=== PATIENT | female | born 1945 | race Caucasian/White ===

== ENCOUNTER 2021-06-02 15:24 | Emergency (ER) | payer MEDICARE, OTHER ==
[~2021-06-02] VITALS: Ht 152 cm; Wt 64.5 kg
--- OUTSIDE RECORDS SUMMARY | 2021-06-02 15:30 | XMS REPORT | Clinical Summary ---
Author Author [facility] Organization [facility] Address Unknown Phone Unavailable Care Team Providers Care Supply Chain Consultant Name Role Phone PCP Unavailable Allergies Not on File Medications Not on file Active Problems Problem Noted Date Hyperlipidemia 12/20/2002 Overview: Formatting of this note might be differ ent from the original. ICD10 Galactorrhea associated with , delivered Overview: Formatting of this note might be differ ent from the original. Description: BX 1987 ICD-10 conversion IMO Replacement Update Social History Date Tobacco Use Types Packs/Day Years Used Never Assessed Sex Assigned at Date Recorded Not on file Last Filed Vital Signs Not on file Plan of Treatment Not on file Results Not on filefrom Last 3 Months
--- NOTE | 2021-06-02 15:52 | ED Upper Extremity ---
General Chief Complaint: Upper Extremity Stated Complaint: FALL,RT WRIST PAIN Source: patient Exam Limitations: no limitations History of Present Illness Date Seen by Provider: Jun 02, 2021 Time Seen by Provider: 15:27 Initial Comments 75-year-old female that is right-hand dominant with a past medical history of hypertension, hyperlipidemia, and thyroid disorder coming in after she was at [facility] reportedly earlier today, walking, tripped on a step and landed on her right outstretched hand just earlier today. Had immediate pain in her right hand/wrist, but thought it was okay. Went home and noticed increasing swelling and pain so that is why she presented to the emergency department. Pain is moderate, intermittent and worse with moving, throbbing. Has not taking any medications for it as of yet. Denies any injury to her wrist before. Also said she bumped her nose but did not pass out and remembers all events. Also has a scrape on her knee that she says is not significantly painful. She is otherwise denying any other acute complaints Allergies and Home Medications Allergies Coded Allergies: Penicillins (Verified Allergy, Unknown, 06/02/21) Sulfa (Sulfonamide Antibiotics) (Verified Allergy, Unknown, 06/02/21) Patient Home Medication List Home Medication List Reviewed: Yes Review of Systems Constitutional: No chills, No fever EENTM: No blurred vision Respiratory: No cough Gastrointestinal: no symptoms reported Genitourinary: no symptoms reported Musculoskeletal: joint pain Skin: no symptoms reported Psychiatric/Neurological: No Symptoms Reported All Other Systems Reviewed Negative Unless Noted: Yes Past Cybrhxe-Rkptuy-Nwezjn Hx Patient Social History Substance use?: No Past Medical History Surgeries: Yes Orthopedic Physical Exam Vital Signs Vital Signs - First Documented 06/02/21 15:51 Temp 36.5 Pulse 72 Resp 18 B/P (MAP) 175/81 (112) Pulse Ox 98 O2 Delivery Room Air Capillary Refill : Height, Weight, BMI Height: '" Weight: lbs. oz. kg; BMI Method: General Appearance: WD/WN, no apparent distress HEENT: PERRL/EOMI, normal ENT inspection, pharynx normal Neck: non-tender, full range of motion, supple, normal inspection Cardiovascular: regular rate, rhythm, no edema, no murmur Respiratory: chest non-tender, lungs clear, normal breath sounds, no respiratory distress, no accessory muscle use Gastrointestinal: normal bowel sounds, non tender, soft; No distended, No guarding Back: normal inspection, no CVA tenderness, no vertebral tenderness Shoulder: normal inspection, non-tender, no evidence of injury, normal ROM Elbow/Forearm: normal inspection, non-tender, no evidence of injury, normal ROM Wrist: Yes normal inspection, Yes non-tender, Yes no evidence of injury, Yes normal ROM Hand: soft tissue tenderness, swelling (Swelling over the scaphoid with maximal tenderness over the scaphoid, normal distal sensation and capillary refill, normal testing of the radial, median, ulnar nerves) Neurologic/Tendon: normal sensation, normal motor functions, normal tendon functions Neurologic/Psychiatric: no motor/sensory deficits, alert, normal mood/affect, oriented x 3 Skin: normal color, warm/dry Lymphatic: no adenopathy Bilateral knee exam normal with normal range of motion, no swelling, no tenderness Procedures/Interventions Splinting and Joint Reduction : Pre-Proc Neuro Vasc Exam: normal Post-Proc Neuro Vasc Exam: normal Progress Prefabricated thumb spica splint placed on the patient with good pain control afterwards. Normal neurovascular exam before and after placing the splint. Splints: Thumb/Wrist Spica Progress/Results/Core Measures Results/Orders My Orders Orders - LORRI REESE MD Hand 3 View Right (06/02/21 15:47) Vital Signs/I&O 06/02/21 15:51 Temp 36.5 Pulse 72 Resp 18 B/P (MAP) 175/81 (112) Pulse Ox 98 O2 Delivery Room Air Progress Progress Note : Progress Note 75-year-old female with above history coming in due to right hand pain after a fall. ABCs were intact and vitals were stable on presentation. Physical exam with tenderness along the scaphoid of the right hand. She was offered pain medication, but she says when she is not moving she is not having pain so declined for now. X-rays of the right hand ordered and interpreted by me showing a lateral distal scaphoid fracture. She was placed in a thumb spica splint. She should follow-up with a hand surgeon as an outpatient. She was discharged home in stable condition with strict return precautions Diagnostic Imaging Diagonstic Imaging: Xray Plain Films/CT/US/NM/MRI: hand Comments [facility]. [place], [place] NAME: [facility] REC#: [id number] PT STATUS: REG ER : 1945 PHYSICIAN: LORRI REESE MD ADMIT DATE: 06/02/21/ER FS Draft Date of Exam:06/02/21 HAND 3 VIEW RIGHT HISTORY: Fall, pain in the scaphoid. TECHNIQUE: Three views of the right hand. Additional scaphoid view of the wrist. COMPARISON: None. FINDINGS: There are degenerative changes in the distal interphalangeal joints and at the base of the thumb. No cortical erosion is seen. Alignment appears normal. There is subtle linear lucency and cortical irregularity at the distal lateral aspect of the scaphoid, may represent a nondisplaced fracture. This is seen on two views, including the scaphoid view, but not on the oblique or lateral views. No other fractures are seen. IMPRESSION: 1. Likely nondisplaced fracture of the distal lateral scaphoid seen on some views. Dictated on workstation # [id number] Dict: 06/02/21 1630 Trans: 06/02/21 1636 [id number] Interpreted by: JERRI WYNNE MD Electronically signed by: Departure Impression Primary Impression: Scaphoid fracture Qualified Codes: S62.014A - Nondisplaced fracture of distal pole of navicular [scaphoid] bone of right wrist, initial encounter for closed fracture Disposition: 01 HOME, SELF-CARE Condition: Stable Departure-Patient Inst. Decision time for Depature: 16:41 Referrals: CORI HAYDEN AMANDA S APRN (PCP) Primary Care Physician Patient Instructions: Hand Fracture (DC), Elbow Fracture in Children Add. Discharge Instructions: This scaphoid of your right hand is broken. Please keep the splint on at all times. Please follow-up with a hand surgeon as sometimes these do require surgery. Take ibuprofen 400 mg every 6 hours as needed for pain. You can also take 1000 mg of Tylenol with this every 6-[address] Hayden is an option for a hand surgeon at [address] His number is in this paperwork. LORRI REESE MD Jun 02, 2021 15:52
--- NOTE | 2021-06-02 16:36 | Diagnostic Imaging Report ---
HISTORY: Fall, pain in the scaphoid. TECHNIQUE: Three views of the right hand. Additional scaphoid view of the wrist. COMPARISON: None. FINDINGS: There are degenerative changes in the distal interphalangeal joints and at the base of the thumb. No cortical erosion is seen. Alignment appears normal. There is subtle linear lucency and cortical irregularity at the distal lateral aspect of the scaphoid, may represent a nondisplaced fracture. This is seen on two views, including the scaphoid view, but not on the oblique or lateral views. No other fractures are seen. IMPRESSION: 1. Likely nondisplaced fracture of the distal lateral scaphoid seen on some views. Dictated by: Dictated on workstation # [id number]
[2021-06-02 16:57] VITALS: BP 172/77
== END 2021-06-02 16:49 | disposition home or self-care (01) ==
LOC: ER FS 15:26
DX: S62.014A Nondisplaced fracture of distal pole of navicular [scaphoid] bone of right wrist, initial encounter for closed fracture (principal); I10 Essential (primary) hypertension; W01.0XXA Fall on same level from slipping, tripping and stumbling without subsequent striking against object, initial encounter
CPT/HCPCS: 73130

== ENCOUNTER → 2021-06-20 | Outpatient (CLI) | payer MEDICARE, OTHER ==
--- NOTE | 2021-06-20 11:35 | Diagnostic Imaging Report ---
Indication: Follow-up right wrist fracture. TIME OF EXAM: 10:55 AM Distal radius and ulna are intact. Area of questionable cortical interruption/lucency involving the distal aspect of the scaphoid appears similar to prior exam. Correlation to pain at this location is recommended. No other questionable fractures are seen. Metacarpals are intact. IMPRESSION: Stable appearance the wrist, specifically the scaphoid when compared exam from 06/02/2021. Dictated by: Dictated on workstation # [id number]
== END ==
LOC: RAD FS 10:33
PROVIDERS: ATTEND Nurse Practitioner
DX: S62.014D Nondisplaced fracture of distal pole of navicular [scaphoid] bone of right wrist, subsequent encounter for fracture with routine healing (principal); X58.XXXD Exposure to other specified factors, subsequent encounter
CPT/HCPCS: 73110

== ENCOUNTER → 2021-07-16 | Outpatient (CLI) | payer MEDICARE, OTHER ==
--- NOTE | 2021-07-16 10:34 | Diagnostic Imaging Report ---
INDICATION: Followup nondisplaced fracture of the distal scaphoid right wrist. There has been some healing of the nondisplaced small fracture of the distal pole of the scaphoid. 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 No evidence of osteonecrosis. IMPRESSION: Healing nondisplaced fracture distal scaphoid. Dictated by: Dictated on workstation # [id number]
== END ==
LOC: RAD FS 10:05
PROVIDERS: ATTEND Nurse Practitioner
DX: S62.014D Nondisplaced fracture of distal pole of navicular [scaphoid] bone of right wrist, subsequent encounter for fracture with routine healing (principal); X58.XXXD Exposure to other specified factors, subsequent encounter
CPT/HCPCS: 73110

== ENCOUNTER → 2021-10-02 | Outpatient (CLI) | payer MEDICARE, OTHER ==
--- NOTE | 2021-10-02 08:57 | Diagnostic Imaging Report ---
Indication: Right wrist fracture, follow-up. Time of Exam: 8:50 AM Correlation is made with prior radiograph from 07/16/2021. There is some generalized demineralization. Distal radius and ulna are intact. No definite residual fracture of the scaphoid is identified. Alignment is anatomic. Metacarpals are intact. IMPRESSION: Healed distal scaphoid fracture. Overall alignment is anatomic. Dictated by: Dictated on workstation # [id number]
== END ==
LOC: RAD FS 08:42
PROVIDERS: ATTEND Nurse Practitioner
DX: S62.014D Nondisplaced fracture of distal pole of navicular [scaphoid] bone of right wrist, subsequent encounter for fracture with routine healing (principal); X58.XXXD Exposure to other specified factors, subsequent encounter
CPT/HCPCS: 73110